=== PATIENT | female | born 1950 | race Caucasian/White ===

== ENCOUNTER 2020-03-01 10:30 | Outpatient (CLI) | payer MEDICARE, BC ==
--- NOTE | 2020-03-01 13:01 | MRI ---
MRI BRAIN AND INTERNAL AUDITORY CANALS WITH AND WITHOUT CONTRAST: Date: 03/01/2020 HISTORY: 69-year-old female with tinnitus of right ear TECHNIQUE: Multiplanar, multisequence MRI, both whole brain images and thin slices through the IACs, pre and pos t IV injection of gadolinium-based contrast agent. FINDINGS: There is no obstructive hydrocephalus. There is no midline shift or any other evidence of mass effect . There is no extra-axial fluid collection. There are mild chronic ischemic white matter changes due to microvascular atherosclerosis. There is otherwise no major intra-axial signal abnormality, abn ormal enhancement, mass, recent hemorrhage, or restricted diffusion. There is no abnormal enhancement, mass, or morphologic abnormality, involving the cerebellopontine an gles, 7th-8th nerve complexes, internal auditory canals, cochleae, vestibules, vestibular aqueducts, or semicircular canals. IMPRESSION: 1) mild chronic ischemic white matter changes. 2) otherwise negative
[2020-03-01] MEDS ORDERED: Magnevist 469MG/ML 20 ML VIAL ONE (13:40)
== END 2020-03-01 10:31 | disposition home or self-care (01) ==
LOC: BICMRI 10:30
PROVIDERS: ATTEND Otolaryngology Plastic Surgery within the Head & Neck
DX: H93.11 Tinnitus, right ear (principal); I67.82 Cerebral ischemia
CPT/HCPCS: 70553; 82565; A9579

== ENCOUNTER 2021-04-10 14:17 | Outpatient (CLI) | payer MEDICARE, BC | END 2021-04-10 14:18 | disposition home or self-care (01) | LOC: BICMAMMO 14:17 | PROVIDERS: ATTEND Family Medicine | DX: Z13.820 Encounter for screening for osteoporosis (principal); Q78.0 Osteogenesis imperfecta | CPT/HCPCS: 77080 ==